=== PATIENT | male | born 1960 | race African-American/Black ===

== ENCOUNTER 2016-11-01 11:45 | Emergency (ER) | payer MEDICAID, OTHER ==
[~2016-11-01] VITALS: Ht 175.3 cm; Wt 75.0 kg
[2016-11-01] MEDS ORDERED: KETOROLAC 60MG/2ML VIAL IM ONE (12:45)
[2016-11-01 13:43] VITALS: BP 121/88
== END 2016-11-01 14:23 | disposition home or self-care (01) ==
LOC: ER 11:52
DX: R10.9 Unspecified abdominal pain (principal); G89.29 Other chronic pain; I10 Essential (primary) hypertension; B19.20 Unspecified viral hepatitis C without hepatic coma; Z85.51 Personal history of malignant neoplasm of bladder; Z59.0 Homelessness; Z88.0 Allergy status to penicillin; Z98.890 Other specified postprocedural states
CPT/HCPCS: 96372; 99283; J1885